=== PATIENT | female | born 2000 | race Caucasian/White ===

== ENCOUNTER 2021-05-10 21:42 | Emergency (ER) | payer BC ==
--- OUTSIDE RECORDS SUMMARY | 2021-05-10 21:45 | XMS REPORT | Continuity of Care Document ---
:2000 Author Organization [facility] t Address [address] [place] [address] [address] [place] [address] Care Team Providers Name Role Phone Lab, Fam Pob I Attending Clinician Unavailable Pob1, Care Clinic Attending Clinician Unavailable Problems This patient has no known problems. Allergies, Adverse Reactions, Alerts This patient has no known allergies or adverse reactions. Medications This patient has no known medications. Procedures This patient has no known procedures. Encounters Start End Encounter Admission Attending Care Care Encounter Source Date/Time Date/Time Type Type Clinicians Facility Department ID 2020-11-03 2020-11-03 Laboratory Lab, [facility] [id number] 11:21:58 11:39:18 Only Fam Pob I Health [id number] [place] [id number] Professio [phone] nal 0[address] One 2020-08-07 2020-08-07 Laboratory Lab, [facility] [place] [id number] 14:42:57 15:02:57 Only Fam Pob I Health [id number] [place] [id number] Professio [phone] nal 0[address] 2020-06-05 2020-06-05 Urgent Pob1, Acute [facility] [id number] 08:16:22 08:36:22 Care Care [facility] [id number] [place] [id number] Professio [phone] nal [phone] One Results This patient has no known results.
[2021-05-11] MEDS ORDERED: METRONIDAZOLE 500mg IVPB 500 MG/100 ML BAG IV ONE (01:55)
[2021-05-11] MEDS ORDERED: NA CHLORIDE 0.9% 1,000 ML ONE (01:55)
[2021-05-11] MEDS ORDERED: CIPROFLOXACIN 400mg IV 400 MG/200 ML BAG IV ONE (01:55)
[2021-05-11 01:57] LABS: Absolute Lymphocytes (CBC) 2.5 K/uL (0.7-4.9); Basophils % 0.7 % (0-1.3); Hematocrit 44.1 % (36.0-45.0); Lymphocytes % 33.3 % (15.3-44.8); MPV 7.9 fL (7.6-11.3); RBC Red Blood Cell Count 4.96 M/uL (3.86-4.86)
[2021-05-11 02:08] LABS: Albumin 4.2 g/dL (3.4-5.0); Bilirubin Direct 0.1 mg/dL (0-0.2); Bilirubin Total 0.3 mg/dL (0.2-1.0); Potassium 3.5 mmol/L (3.5-5.1); Protein, Total 8.3 g/dL (6.4-8.2)
[2021-05-11 02:45] LABS: Urine Blood 2+ (Negative); Urine Glucose Negative (Negative); Urine Protein 1+ (Negative); Urine Specific Gravity >=1.030 (1.005-1.030); Urine pH 5.5 (5.0-7.0)
[2021-05-11 03:11] LABS: Urine Specific Gravity/Preg >1.030 (1.005-1.030)
--- NOTE | 2021-05-11 04:06 | EDPHYS ---
Physician Documentation [facility] [place] Name: Erma Mei Age: 20 yrs Sex: Female : 2000 Arrival Date: 05/10/2021 Time: 21:45 Bed 15 Private MD: ED Physician Vasile Thomson HPI: 05/11 01:38 This 20 yrs old Female presents to ER via Ambulatory with complaints of ashley Diarrhea. 01:38 The patient presents to the emergency department with diarrhea, that is continuous. ashley Onset: The symptoms/episode began/occurred 2 day(s) ago. Possible causes: unknown. The symptoms are aggravated by nothing. The symptoms are alleviated by nothing. Associated signs and symptoms: The patient has no apparent associated signs or symptoms. Severity of symptoms: At their worst the symptoms were mild in the emergency department the symptoms are unchanged. The patient has not experienced similar symptoms in the past. 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 - Social history:: Smoking status: Patient denies any tobacco usage or history of. Patient uses street drugs, marijuana. ROS: 05/11 01:39 Constitutional: Negative for fever, chills, and weight loss, Eyes: Negative for injury, ashley pain, redness, and discharge, ENT: Negative for injury, pain, and discharge, Neck: Negative for injury, pain, and swelling, Cardiovascular: Negative for chest pain, palpitations, and edema, Respiratory: Negative for shortness of breath, cough, wheezing, and pleuritic chest pain, Back: Negative for injury and pain, : Negative for injury, bleeding, discharge, and swelling, MS/Extremity: Negative for injury and deformity, Skin: Negative for injury, rash, and discoloration, Neuro: Negative for headache, weakness, numbness, tingling, and seizure, Psych: Negative for depression, anxiety, suicide ideation, homicidal ideation, and hallucinations, Allergy/Immunology: Negative for hives, rash, and allergies, Endocrine: Negative for neck swelling, polydipsia, polyuria, polyphagia, and marked weight changes, Hematologic/Lymphatic: Negative for swollen nodes, abnormal bleeding, and unusual bruising. Abdomen/GI: Positive for abdominal pain, nausea, vomiting, diarrhea, abdominal cramps. Exam: 01:39 Constitutional: This is a well developed, well nourished patient who is awake, alert, ashley and in no acute distress. Head/Face: Normocephalic, atraumatic. Eyes: Pupils equal round and reactive to light, extra-ocular motions intact. Lids and lashes normal. Conjunctiva and sclera are non-icteric and not injected. Cornea within normal limits. Periorbital areas with no swelling, redness, or edema. ENT: Nares patent. No nasal discharge, no septal abnormalities noted. Tympanic membranes are normal and external auditory canals are clear. Oropharynx with no redness, swelling, or masses, exudates, or evidence of obstruction, uvula midline. Mucous membranes moist. Neck: Trachea midline, no thyromegaly or masses palpated, and no cervical lymphadenopathy. Supple, full range of motion without nuchal rigidity, or vertebral point tenderness. No Meningismus. Chest/axilla: Normal chest wall appearance and motion. Nontender with no deformity. No lesions are appreciated. Cardiovascular: Regular rate and rhythm with a normal S1 and S2. No gallops, murmurs, or rubs. Normal PMI, no JVD. No pulse deficits. Respiratory: Lungs have equal breath sounds bilaterally, clear to auscultation and percussion. No rales, rhonchi or wheezes noted. No increased work of breathing, no retractions or nasal flaring. Abdomen/GI: Soft, non-tender, with normal bowel sounds. No distension or tympany. No guarding or rebound. No evidence of tenderness throughout. Back: No spinal tenderness. No costovertebral tenderness. Full range of motion. Female : Normal external genitalia. Skin: Warm, dry with normal turgor. Normal color with no rashes, no lesions, and no evidence of cellulitis. MS/ Extremity: Pulses equal, no cyanosis. Neurovascular intact. Full, normal range of motion. Neuro: Awake and alert, GCS 15, oriented to person, place, time, and situation. Cranial nerves II-XII grossly intact. Motor strength 5/5 in all extremities. Sensory grossly intact. Cerebellar exam normal. Normal gait. Psych: Awake, alert, with orientation to person, place and time. Behavior, mood, and affect are within normal limits. Vital Signs: 05/10 22:44 BP 142 / 78; Pulse 87; Resp 16 S; Temp 98.8(O); Pulse Ox 97% on R/A; Weight 81.65 kg bb (R); Height 5 ft. 9 in. (175.26 cm) (R); Pain 4/10; 05/11 03:51 BP 126 / 75; Pulse 76; Resp 18; Pulse Ox 98% on R/A; ak2 05/10 22:44 Body Mass Index 26.58 (81.65 kg, 175.26 cm) MDM: 00:45 Patient medically screened. ashley 01:40 Differential diagnosis: Nonspecific abd pain, gastritis, cholecystitis, pancreatitis, ashley diverticulitis, viral gastroenteritis, gastroenteritis, appendicitis, cholecystitis, Cholelithiasis, diverticulitis, gastritis, gastroesophageal reflux disease, non-specific abd pain, pancreatitis, Peptic Ulcer Disease, urinary tract infection. Data reviewed: vital signs, nurses notes, lab test result(s), radiologic studies, CT scan. Data interpreted: lunchroom monitor: not applicable for this patient encounter. rate is 87 beats/min, rhythm is regular, Pulse oximetry: on room air is 97 %. Counseling: I had a detailed discussion with the patient and/or guardian regarding: the historical points, exam findings, and any diagnostic results supporting the discharge/admit diagnosis, lab results, radiology results, the need for outpatient follow up, for definitive care, a family practitioner, a chart picker. 05/10 22:50 Order name: Flu; Complete Time: 02:13 05/11 00:49 Order name: Basic Metabolic Panel [facility] 05/11 00:49 Order name: CBC with Diff; Complete Time: 02:13 [facility] 05/11 00:49 Order name: Hepatic Function; Complete Time: 02:13 ashley 05/11 00:49 Order name: Lipase; Complete Time: 02:13 [facility] 05/11 00:49 Order name: Basic Metabolic Panel; Complete Time: 02:13 [facility]AL 05/11 02:02 Order name: SARS-COV-2 RT PCR; Complete Time: 02:13 EDAL 05/11 02:45 Order name: Urine Dipstick-Ancillary; Complete Time: 03:46 EDAL 05/11 02:49 Order name: Urine Culture [facility] 05/10 22:50 Order name: Urine Dipstick-Ancillary (obtain specimen) 05/10 22:50 Order name: Urine Test (obtain specimen) 05/11 00:49 Order name: IV Saline Lock [facility] 05/11 00:49 Order name: Labs collected and sent [facility] 05/11 00:49 Order name: CT Abd/Pelvis - IV Contrast Only; Complete Time: 15:10 [facility] 05/11 02:50 Order name: Urine Culture [facility] 05/11 03:01 Order name: Urine --Ancillary (enter results); Complete Time: 03:46 tt3 05/11 03:57 Order name: Chest Single View XRAY; Complete Time: 15:10 [facility] Administered Medications: 01:33 Drug: NS 0.9% 1000 ml Route: IV; Rate: 1 bolus; Site: right antecubital; ak2 02:37 Drug: Cipro (ciprofloxacin) 400 mg Volume: 200 ml; Route: IVPB; Infused Over: 60 mins; ak2 Site: right antecubital; 02:37 Drug: Flagyl (metroNIDAZOLE) 500 mg Volume: 100 ml; Route: IVPB; Rate: 200 ml/hr; ak2 Infused Over: 30 mins; Site: right antecubital; 02:49 Drug: NS 0.9% 1000 ml Route: IV; Rate: 1 bolus; Site: left antecubital; ak2 Disposition Summary: 05/11/21 04:05 Discharge Ordered Location: Home [facility] Problem: new ashley Symptoms: have improved ashley Condition: Stable ashley Diagnosis - Diarrhea, unspecified ashley - Abdominal pain, Generalized ashley - UTI/ Urinary tract infection, site not specified ashley Followup: ashley - With: Private Physician - When: 2 - 3 days - Reason: Recheck today's complaints, Continuance of care, Re-evaluation by your physician Followup: ashley - With: - When: 2 - 3 days - Reason: Recheck today's complaints, Continuance of care, Re-evaluation by your physician Discharge Instructions: - Discharge Summary Sheet ashley - Abdominal Pain, Adult ashley - Food Choices to Help Relieve Diarrhea, Adult ashley - Diarrhea, Adult ashley - Urinary Tract Infection, Adult ashley - Urinary Tract Infection, Adult, [id number] ashley - Diarrhea, Adult, [id number] [facility] Forms: - Medication Reconciliation Form [facility] - Thank You Letter [facility] - Antibiotic Education [facility] - Prescription Opioid Use [facility] Prescriptions: - Flagyl 500 mg Oral Tablet - take 1 tablet by ORAL route every 8 hours for 7 days; 21 tablet; Refills: 0, [facility] Product Selection Permitted - Pepcid 20 mg Oral Tablet - take 1 tablet by ORAL route every 12 hours for 10 days; 20 tablet; Refills: 0, [facility] Product Selection Permitted - Cipro 500 mg Oral Tablet - take 1 tablet by ORAL route every 12 hours for 7 days; 14 tablet; Refills: 0, [facility] Product Selection Permitted - dicyclomine 20 mg Oral Tablet - take 1 tablet by ORAL route 4 times per day; 20 tablet; Refills: 0, Product [facility] Selection Permitted Signatures: Dispatcher [employer] EDMS Vasile Thomson MD MD cha Ballard, Brenda, RN RN Micah Titus PA PA [id number] Amilcar Talbert2 Corrections: (The following items were deleted from the chart) 00:47 05/10 22:51 CORONAVIRUS+[email or web address].BRZ ordered. EDAL EDMS
--- NOTE | 2021-05-11 04:06 | ER ---
Nurse's Notes [facility] Name: Erma Mei Age: 20 yrs Sex: Female : 2000 Arrival Date: 05/10/2021 Time: 21:45 Bed 15 Private MD: Diagnosis: Diarrhea, unspecified;Abdominal pain, Generalized;UTI/ Urinary tract infection, site not specified Presentation: 05/10 22:44 Chief complaint: Patient states: she has had cold-like symptoms runny nose, diarrhea bb for a week today she was having bloody diarrhea with mild abdominal pain. Coronavirus screen: cough unrelated to allergies. Ebola Screen: No symptoms or risks identified at this time. Initial Sepsis Screen: Does the patient meet any 2 criteria? No. Patient's initial sepsis screen is negative. Does the patient have a suspected source of infection? No. Patient's initial sepsis screen is negative. Risk Assessment: Do you want to hurt yourself or someone else? Patient reports no desire to harm self or others. Onset of symptoms was May 03, 2021. 22:44 Method Of Arrival: Ambulatory bb 22:44 Acuity: CHRIS 3 bb Triage Assessment: 22:46 General: Appears in no apparent distress. Behavior is calm, cooperative. Pain: bb Complains of pain in abdomen Pain currently is 4 out of 10 on a pain scale. Neuro: Level of Consciousness is awake, alert, obeys commands, Oriented to person, place, time, situation. Cardiovascular: No deficits noted. Respiratory: Respiratory effort is even, unlabored. GI: Abdomen is non-distended, Reports diarrhea, bloody stool. Derm: Skin is pink, warm \T\ dry. Musculoskeletal: Circulation, motion, and sensation intact. 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 - Social history:: Smoking status: Patient denies any tobacco usage or history of. Patient uses street drugs, marijuana. Screenin/03 02:50 Abuse screen: Denies threats or abuse. Denies injuries from another. Nutritional ak2 screening: No deficits noted. Tuberculosis screening: No symptoms or risk factors identified. Fall Risk None identified. Assessment: 02:49 Reassessment: Patient and/or family updated on plan of care and expected duration. Pain ak2 level reassessed. General: urine test POC negative. Pain: Denies pain. Neuro: No deficits noted. Cardiovascular: No deficits noted. Respiratory: No deficits noted. Vital Signs: 05/10 22:44 BP 142 / 78; Pulse 87; Resp 16 S; Temp 98.8(O); Pulse Ox 97% on R/A; Weight 81.65 kg bb (R); Height 5 ft. 9 in. (175.26 cm) (R); Pain 4/10; 05/11 03:51 BP 126 / 75; Pulse 76; Resp 18; Pulse Ox 98% on R/A; ak2 05/10 22:44 Body Mass Index 26.58 (81.65 kg, 175.26 cm) bb ED Course: 05/10 21:45 Patient arrived in ED. am2 22:46 Triage completed. bb 22:46 Arm band placed on Patient placed in waiting room, Patient notified of wait time. Labs bb ordered per protocol. 05/11 00:45 Vasile Thomson MD is Attending Physician. ashley 02:50 Patient has correct armband on for positive identification. ak2 02:50 No provider procedures requiring assistance completed. Inserted saline lock: 20 gauge ak2 in right antecubital area, using aseptic technique. 03:12 CT Abd/Pelvis - IV Contrast Only In Process Unspecified. EDMS 04:05 Leeann Hawthorne MD is Referral Physician. ashley 04:19 Chest Single View XRAY In Process Unspecified. EDMS Administered Medications: 01:33 Drug: NS 0.9% 1000 ml Route: IV; Rate: 1 bolus; Site: right antecubital; ak2 02:37 Drug: Cipro (ciprofloxacin) 400 mg Volume: 200 ml; Route: IVPB; Infused Over: 60 mins; ak2 Site: right antecubital; 02:37 Drug: Flagyl (metroNIDAZOLE) 500 mg Volume: 100 ml; Route: IVPB; Rate: 200 ml/hr; ak2 Infused Over: 30 mins; Site: right antecubital; 02:49 Drug: NS 0.9% 1000 ml Route: IV; Rate: 1 bolus; Site: left antecubital; ak2 Outcome: 04:05 Discharge ordered by MD. ramirez 04:36 Discharged to home ambulatory. ak2 04:36 Condition: good 04:36 Discharge instructions given to patient. 04:36 Patient left the ED. ak2 Signatures: Dispatcher [employer] Vasile Rodriguez MD MD cha Ballard, Brenda, RN RN Imelda Garcai Anthony ak2
[2021-05-11 04:53] VITALS: TEMP 98.8
[2021-05-11 04:55] VITALS: BP 126/75; O2SAT 98
--- NOTE | 2021-05-11 07:25 | RAD REPORT ---
EXAM DESCRIPTION: RAD - Chest Single View - 05/11/2021 4:19 am CLINICAL HISTORY: COUGH COMPARISON: No comparisons FINDINGS: No evidence of edema or pneumonia. The heart size is within normal limits.No acute osseous abnormality. No significant pleural effusions or pneumothorax. IMPRESSION: No acute cardiopulmonary disease.
--- NOTE | 2021-05-11 13:29 | RAD REPORT ---
EXAM DESCRIPTION: CT - Abdomen Pelvis W Contrast - 05/11/2021 6:26 am CLINICAL HISTORY: 20 years, Female, ABD PAIN COMPARISON: None. TECHNIQUE: Contrast-enhanced images of the abdomen and pelvis were performed utilizing 2 mm slice th ickness at 2 mm interval reconstruction from the lung bases to the ischial tuberosities after the adm inistration of IV contrast. Delayed imaging through the kidneys and bladder were also generated. In addition multiplanar reformats in the coronal and sagittal plane were obtained and reviewed. This exam was performed according to our departmental dose-optimization protocol, which includes auto mated exposure control, adjustment of the mA and/or kV according to patient size and/or use of iterat josé luis reconstruction technique. FINDINGS: The lung bases demonstrate to be clear. The liver, gallbladder, pancreas, spleen and adrenal glands demonstrate to be unremarkable, no focal lesions are noted. The kidneys demonstrate normal uptake of contrast media with no evidence for hydronephrosis. Grossly the unopacified stomach, small bowel and large bowel demonstrate to be within normal limits. There is no evidence for bowel dilatation/or free air. The appendix is normal. The urinary bladder demonstrate to be unremarkable. The uterus demonstrate to be within normal limi ts. There is a T-shaped radiodensity structure within the endometrial cavity corresponding to a intra uterine device. There are no adnexal masses. The aorta demonstrate to be normal. There is no retr operitoneal lymphadenopathy. There is no evidence for ascites and/or significant abnormal fluid colle ctions. The rest of the soft tissue and bony structures are within normal limits. IMPRESSION: No acute intra-abdominal or pelvic pathology identified. Intrauterine device in place. Electronically signed by: Braden Mays MD 05/11/2021 3:51 AM CDT Due to temporary technical issues with the PACS/Fluency reporting system, reports are being signed by the in house radiologist without review as a courtesy to ensure prompt reporting. The interpreting r adiologist is fully responsible for the content of the report.
== END 2021-05-11 04:36 | disposition home or self-care (01) ==
LOC: ER 21:42
DX: N39.0 Urinary tract infection, site not specified (principal); R10.84 Generalized abdominal pain; Z88.2 Allergy status to sulfonamides
CPT/HCPCS: 87088; 85025; 87086; 80048; 36415; 81025; 80076; 81003; 83690; 87804 ×2; 74177; 71045; U0003; Q9967; J7030; J0744

== ENCOUNTER 2024-10-20 15:34 | Emergency (ER) | payer BC ==
[2024-10-20 17:31] LABS: Specific Gravity 1.028 (1.005-1.030)
[2024-10-20 17:34] LABS: Absolute Basophils 0.1 K/uL (0-0.5); Absolute Eosinophils 0.1 K/uL (0-0.5); Absolute Lymphocytes (CBC) 1.6 K/uL (0.7-4.9); Absolute Monocytes 0.6 K/uL (0.1-1.3); Absolute Neutrophil 8.2 K/uL (1.8-8.0); Basophils % 0.6 % (0-1.3); Eosinophils % 0.6 % (0-4.4); Hemoglobin 13.1 g/dL (12.0-15.0); Lymphocytes % 15.2 % (15.3-44.8); MCH 29.3 pg (27.0-35.0); MCHC 32.7 g/dL (32.0-36.0); MCV 89.6 fL (80-100); MPV 7.7 fL (7.6-11.3); Monocytes % 6.1 % (3.3-12.3); Neutrophils % 77.5 % (41.7-73.7); Nucleated Red Blood Cells % 0.1 % (0-0); Platelets 456 thou/uL (152-406); RBC Red Blood Cell Count 4.46 M/uL (3.86-4.86); Red Cell Distribution Width 14.4 % (12.1-15.2)
[2024-10-20] MEDS ORDERED: KETOROLAC 30 MG/ML INJ ONE (17:46)
[2024-10-20 17:53] LABS: Specific Gravity 1.028 (1.005-1.030); Sqamous Epithelial <5 /HPF (None Seen); Urine Bacteria <20 /HPF (<20); Urine Bilirubin NEGATIVE (Negative); Urine Blood 1+ (Negative); Urine Clarity Extremely Turbid (Clear); Urine Color Light-Yellow (Yellow); Urine Culture Reflex Order REFLEXED; Urine Glucose NEGATIVE (Negative); Urine Ketones NEGATIVE (Negative); Urine Microscopic Reflex YN ORDER UMIC; Urine Nitrite NEGATIVE (Negative); Urine Protein TRACE (Negative); Urine RBC 21-50 /HPF (None Seen); Urine Urobilinogen Normal (Normal); Urine WBC 20-50 /HPF (<5); Urine pH 7.5 (5.0-7.0)
[2024-10-20 17:58] LABS: ALT/SGPT 19 U/L (13-56); AST/SGOT 16 U/L (15-37); Albumin 3.3 g/dL (3.4-5.0); Albumin/Globulin Ratio 0.7 (1.1-1.8); Alkaline Phosphatase 57 U/L (45-117); Anion Gap 9.5 mEq/L (5.0-15.0); BUN Blood Urea Nitrogen 11 mg/dL (7-18); Bicarbonate 26 mEq/L (21-32); Bilirubin Total 0.3 mg/dL (0.2-1.0); Globulin 4.8 g/dL (2.3-3.5); Glomerular Filtration Rate 108 ml/min (=/>90); Glucose Level 102 mg/dL (74-106); Lipase 21 U/L (13-75); Magnesium 2.3 mg/dL (1.6-2.4); NT PRO-BNP 166 pg/mL (<125); Potassium 3.5 mEq/L (3.5-5.1); Protein, Total 8.1 g/dL (6.4-8.2); Sodium Level 138 mEq/L (136-145); Troponin High Sensitivity 10.5 pg/mL (<58.9)
[2024-10-20 18:04] LABS: Bilirubin Direct < 0.2 mg/dL (0-0.2); Bilirubin Indirect, Calculated 0.1 mg/dL (0.2-0.8)
--- NOTE | 2024-10-20 18:17 | RAD REPORT ---
EXAMINATION: ONE VIEW CHEST XR CLINICAL INDICATION: Female, 24 years old.,SOB TECHNIQUE: Frontal chest projection is submitted. Examination is limited by patient positioning and t echnique. COMPARISON: 05/11/2021 FINDINGS: The lungs are well inflated and clear. No pneumothorax or sizable effusion. The heart is normal in s ize. Mediastinal contours are unremarkable. IMPRESSION: No acute intrathoracic abnormalities.
[2024-10-20] MEDS ORDERED: metroNIDAZOLE 500 MG TABLET ONE (18:27)
[2024-10-20] MEDS ORDERED: DICYCLOMINE HCL 10 MG CAP ONE (18:27)
[2024-10-20] MEDS ORDERED: CIPROFLOXACIN HCL 500 MG TAB ONE (18:27)
--- NOTE | 2024-10-20 18:45 | RAD REPORT ---
EXAMINATION: US Extrem Venous W Compress Boris CLINICAL INDICATION: [facility] MAIN r/o dvt Bed Name: 17 Y TECHNIQUE: Complete bilateral duplex sonography of the BILATERAL lower extremity veins was performed. The examination included compression for vein patency, color Doppler imaging and flow augmentation in response to distal compression of the distal external iliac, common femoral, femoral, popliteal, t ibial, and great and small saphenous veins. COMPARISON: No prior exam. FINDINGS: Duplex sonography testing of the veins of the BILATERAL lower extremity was performed. Color flow yris ging shows all veins to be compressible with [id number] color filling. Pulsatile and phasic flow is present within all lower extremity deep and superficial veins examined. IMPRESSION: There is no deep vein or superficial vein thrombosis.
--- NOTE | 2024-10-20 20:13 | RAD REPORT ---
EXAM: CT Chest For Pe Angio TECHNIQUE: CT angiogram of the chest was performed following intravenous contrast administration, inc luding sagittal and coronal as well as maximum intensity projection reformats. One or more of the following dose reduction techniques were used: Automated exposure control, adjustment of the mA and k V according to patient size, and iterative reconstruction. Unless otherwise specified, incidental findings do not require dedicated imaging follow-up. INDICATION: HS MAIN right lower chest/flank pain COMPARISON: 10/20/2024. FINDINGS: LINES/TUBES: None. PULMONARY ARTERIES: Main pulmonary arteries are normal in caliber. No filling defects within the pul monary arteries to suggest pulmonary embolus. LUNGS AND AIRWAYS: The lungs and central airways are normal without focal abnormality. PLEURA: No effusion or pneumothorax. HEART AND MEDIASTINUM: The visualized thyroid gland is normal. No mediastinal, hilar, or axillary lym phadenopathy. Heart is unremarkable. No pericardial effusion. SOFT TISSUES AND BONES: No acute osseous abnormality. No significant soft tissue finding. UPPER ABDOMEN: Unremarkable. IMPRESSION: No evidence of acute central pulmonary emboli. No suspicious intrathoracic findings..
--- NOTE | 2024-10-20 20:25 | ER ---
Nurse's Notes [facility] Name: Erma Mei Age: 24 yrs Sex: Female : 2000 Arrival Date: 10/20/2024 Time: 15:34 Bed 16 Private MD: Diagnosis: Pleurisy Presentation: 10/20 15:49 Chief complaint: Patient states: PT REPORTS RIGHT SHOULDER PAIN STARTED LAST NIGHT WAS db "INDESCRIBABLE" STATES HX OF SPONTANEOUS PNEUMOTHORAX AND FEELS LIKE SIMILAR PAIN. STATES PAIN HAS GONE DOWN NOW. REPORTS "LEEP" PROCEDURE ON Sep. Coronavirus screen: Client denies travel out of the [place] in the last 14 days. At this time, the client does not indicate any symptoms associated with coronavirus-19. Ebola Screen: Patient negative for fever greater than or equal to 101.5 degrees Fahrenheit, and additional compatible Ebola Virus Disease symptoms Patient denies exposure to infectious person. Patient denies travel to an Ebola-affected area in the 21 days before illness onset. No symptoms or risks identified at this time. Initial Sepsis Screen: Does the patient meet any 2 criteria? No. Patient's initial sepsis screen is negative. Does the patient have a suspected source of infection? No. Patient's initial sepsis screen is negative. Risk Assessment: Do you want to hurt yourself or someone else? Patient reports no desire to harm self or others. Onset of symptoms was October 19, 2024. 15:49 Method Of Arrival: Ambulatory db 15:49 Acuity: CHRIS 3 db Triage Assessment: 15:51 General: Appears in no apparent distress. comfortable, Behavior is calm, cooperative, db appropriate for age. Pain: Complains of pain in anterior aspect of right shoulder and posterior aspect of right shoulder. Neuro: Level of Consciousness is awake, alert, obeys commands, Oriented to person, place, time, situation. Respiratory: Airway is patent Respiratory effort is even, unlabored, Respiratory pattern is regular, symmetrical. 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 - Infectious Disease History:: Denies. - Social history:: Smoking status: Reported history of juuling and/or vaping. Screenin:50 [facility] ED Fall Risk Assessment (Adult) History of falling in the last 3 months, rs5 including since admission No falls in past 3 months (0 pts) Confusion or Disorientation No (0 pts) Intoxicated or Sedated No (0 pts) Impaired Gait No (0 pts) Mobility Assist Device Used No (0 pt) Altered Elimination No (0 pt) Score/Fall Risk Level 0 - 2 = Low Risk Oriented to surroundings, Maintained a safe environment. Abuse screen: Denies threats or abuse. Nutritional screening: No deficits noted. Tuberculosis screening: No symptoms or risk factors identified. Assessment: 15:50 General: Appears in no apparent distress. uncomfortable, Behavior is calm, cooperative. rs5 Pain: Complains of pain in right shoulder Pain. 15:50 Neuro: Level of Consciousness is awake, alert, obeys commands, Oriented to person, rs5 place, time, situation. Cardiovascular: Patient's skin is warm and dry. Respiratory: Airway is patent Respiratory effort is even, unlabored, Respiratory pattern is regular, symmetrical. GI: Abdomen is round non-distended, Abd is soft and non tender X 4 quads. : No signs and/or symptoms were reported regarding the genitourinary system. EENT: No signs and/or symptoms were reported regarding the EENT system. Derm: Skin is intact, Skin is pink, warm \\T\\ dry. Musculoskeletal: Range of motion: intact in all extremities. 17:01 Reassessment: Patient and/or family updated on plan of care and expected duration. Pain rs5 level reassessed. Patient is alert, oriented x 3, equal unlabored respirations, skin warm/dry/pink. 18:17 Reassessment: Patient and/or family updated on plan of care and expected duration. Pain rs5 level reassessed. Patient is alert, oriented x 3, equal unlabored respirations, skin warm/dry/pink. Vital Signs: 15:49 BP 128 / 83; Pulse 111; Resp 16; Temp 98.1; Pulse Ox 95% ; Weight 79.38 kg; Height 5 db ft. 9 in. ; Pain 3/10; 17:01 BP 128 / 62; Pulse 71; Resp 17; Pulse Ox 99% on R/A; rs5 18:52 BP 118 / 73; Pulse 66; Resp 17; Pulse Ox 99% ; rs5 19:15 BP 121 / 78; Pulse 85; Resp 17; Pulse Ox 98% ; Pain 0/10; rg5 20:11 BP 109 / 88; Pulse 85; Resp 18; Temp 98; Pulse Ox 99% on R/A; Pain 0/10; rg5 15:49 Body Mass Index 25.84 (79.38 kg, 175.26 cm) db 15:49 Pain Scale: Adult db 19:15 Pain Scale: Adult rg5 20:11 Pain Scale: Adult rg5 ED Course: 15:36 Patient arrived in ED. mr 15:47 Vasile Hilton PA is PHCP. cp 15:47 Faustino Dubose MD is Attending Physician. cp 15:50 Patient has correct armband on for positive identification. Bed in low position. Call rs5 light in reach. Side rails up X2. 15:50 Inserted saline lock: 20 gauge in left antecubital area, using aseptic technique. Blood rs5 collected. Flushed with 10 mL NS. 15:50 No provider procedures requiring assistance completed. rs5 15:51 Triage completed. db 15:51 Arm band placed on left wrist. db 17:04 Rudy Villa, RN is Primary Nurse. rs5 17:27 XRAY Chest (1 view) In Process Unspecified. EDMS 18:29 US Extremity Venous W Compression Boris In Process Unspecified. EDMS 19:40 CT Chest For PE Angio In Process Unspecified. EDMS 20:44 Provided Education on: post er care done. rg5 20:44 IV discontinued, bleeding controlled, No redness/swelling at site. Pressure dressing rg5 applied. Administered Medications: 18:30 Drug: Ketorolac IVP 15 mg IVP once Route: IVP; Site: left antecubital; rs5 19:27 Follow up: Response: No adverse reaction; Pain is decreased rg5 Medication: 18:17 VIS not applicable for this client. rs5 Outcome: 20:24 Discharge ordered by . kb 20:44 Discharged to home ambulatory, rg5 20:44 Condition: stable 20:44 Discharge instructions given to patient, Instructed on discharge instructions, Demonstrated understanding of instructions, follow-up care, medications, Prescriptions given X 1, 20:45 Patient left the ED. rg5 Signatures: Dispatcher [employer] EDMS Lesly Wright, CHARLEEN-C CHILI PEPPER GRINDER-Ckb May Scott, Reg Reg mr Vasile Hilton PA PA cp Benton, Danielle, RN RN db Rudy Villa RN RN rs5 David Abdi RN RN rg5 Corrections: (The following items were deleted from the chart) 15:52 15:51 PSHx: LEEP (hand and wrist); db db 18:17 15:50 General: Appears in no apparent distress. uncomfortable, Behavior is calm, rs5 cooperative, rs5 19:28 19:15 BP 121 / 78; Pulse 85bpm; Resp 17bpm; Pulse Ox 98%; Pain 0/10, Adult; rg5 rg5
--- NOTE | 2024-10-20 20:25 | EDPHYS ---
Physician Documentation [facility] Name: Erma Mei Age: 24 yrs Sex: Female : 2000 Arrival Date: 10/20/2024 Time: 15:34 Bed 16 Private MD: ED Physician Faustino Dubose HPI: 10/20 16:20 This 24 yrs old Unknown Female presents to ER via Ambulatory with complaints of Flank cp Pain, Shoulder Pain. 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 - Infectious Disease History:: Denies. - Social history:: Smoking status: Reported history of juuling and/or vaping. ROS: 16:25 Constitutional: Negative for body aches, chills, fever, poor PO intake, cp 16:25 Eyes: Negative for injury, pain, redness, and discharge, cp 16:25 ENT: Negative for drainage from ear(s), ear pain, sore throat, difficulty swallowing, difficulty handling secretions, 16:25 Respiratory: Negative for cough, wheezing, 16:25 Abdomen/GI: Negative for abdominal pain, vomiting, diarrhea, constipation, 16:25 Back: Positive for pain at rest, pain with movement, of the right subscapular area and right flank area, Exam: 16:30 Head/Face: Normocephalic, atraumatic. cp 16:30 Constitutional: The patient appears in no acute distress, alert, awake, non-diaphoretic, non-toxic, well developed, well nourished, 16:30 Eyes: Periorbital structures: appear normal, Conjunctiva: normal, Sclera: no appreciated abnormality, Lids and lashes: appear normal, bilaterally, 16:30 ENT: External ear(s): are unremarkable, Nose: is normal, Mouth: Lips: moist, Oral mucosa: moist, Posterior pharynx: Airway: no evidence of obstruction, patent, 16:30 Chest/axilla: Palpation: crepitus, is not appreciated, tenderness, that is mild, of the right lower lateral posterior chest wall, 16:30 Cardiovascular: Rate: tachycardic, Rhythm: regular, 16:30 Respiratory: the patient does not display signs of respiratory distress, Respirations: normal, no use of accessory muscles, no retractions, labored breathing, is not present, Breath sounds: decreased breath sounds, that are mild, are heard in the right posterior lower lobe, stridor, is not appreciated, 16:30 Abdomen/GI: Inspection: abdomen appears normal, Palpation: abdomen is soft and non-tender, in all quadrants, 16:30 Neuro: Orientation: to person, place \T\ time. Mentation: is normal, 17:30 ECG was reviewed by the Attending Physician. cp Vital Signs: 15:49 BP 128 / 83; Pulse 111; Resp 16; Temp 98.1; Pulse Ox 95% ; Weight 79.38 kg; Height 5 db ft. 9 in. ; Pain 3/10; 17:01 BP 128 / 62; Pulse 71; Resp 17; Pulse Ox 99% on R/A; rs5 18:52 BP 118 / 73; Pulse 66; Resp 17; Pulse Ox 99% ; rs5 19:15 BP 121 / 78; Pulse 85; Resp 17; Pulse Ox 98% ; Pain 0/10; rg5 20:11 BP 109 / 88; Pulse 85; Resp 18; Temp 98; Pulse Ox 99% on R/A; Pain 0/10; rg5 15:49 Body Mass Index 25.84 (79.38 kg, 175.26 cm) db 15:49 Pain Scale: Adult db 19:15 Pain Scale: Adult rg5 20:11 Pain Scale: Adult rg5 MDM: 20:24 Medical Screening Exam initiated kb 10/20 16:15 Order name: Basic Metabolic Panel; Complete Time: 18:22 cp 10/20 16:15 Order name: CBC with Diff; Complete Time: 18:22 cp 10/20 18:22 Interpretation: Normal except: PLT 456; THAI% 77.5; LYM% 15.2; NEUT A 8.2. cp 10/20 16:15 Order name: D-Dimer; Complete Time: 17:45 cp 10/20 17:45 Interpretation: Reviewed. 10/20 16:15 Order name: LFT's; Complete Time: 18:22 cp 10/20 16:15 Order name: Magnesium; Complete Time: 18:22 cp 10/20 16:15 Order name: NT PRO-BNP; Complete Time: 18:22 cp 10/20 16:15 Order name: Troponin HS; Complete Time: 18:22 cp 10/20 16:15 Order name: Lipase; Complete Time: 18:22 cp 10/20 16:15 Order name: Urinalysis w/ reflexes; Complete Time: 18:22 cp 10/20 16:15 Order name: Test, Urine; Complete Time: 17:45 cp 10/20 17:58 Order name: Urine Culture EDMS 10/20 16:15 Order name: XRAY Chest (1 view); Complete Time: 18:22 cp 10/20 18:22 Interpretation: Report review. cp 10/20 17:46 Order name: CT Chest For PE Angio; Complete Time: 20:13 cp 10/20 17:46 Order name: US Extremity Venous W Compression Boris; Complete Time: 18:53 cp 10/20 18:53 Interpretation: Report reviewed. cp 10/20 16:15 Order name: EKG; Complete Time: 16:15 cp 10/20 16:15 Order name: Cardiac monitoring; Complete Time: 17:35 cp 10/20 16:15 Order name: EKG - Nurse/Tech; Complete Time: 17:35 cp 10/20 16:15 Order name: IV Saline Lock; Complete Time: 17:35 cp 10/20 16:15 Order name: Labs collected and sent; Complete Time: 17:35 cp 10/20 16:15 Order name: O2 Per Protocol; Complete Time: 17:35 cp 10/20 16:15 Order name: O2 Sat Monitoring; Complete Time: 17:35 cp EC:30 Rate is 90 beats/min. Rhythm is regular. ME interval is normal. QRS interval is normal. cp QT interval is normal. T waves are Inverted in lead aVR. Interpreted by me. Reviewed by me. Administered Medications: 18:30 Drug: Ketorolac IVP 15 mg IVP once Route: IVP; Site: left antecubital; rs5 19:27 Follow up: Response: No adverse reaction; Pain is decreased rg5 Disposition: 10/21 09:09 Co-signature as Attending Physician, Faustino Dubose MD I reviewed the patient's care rn provided by the Advanced Practice Provider and agree with the diagnosis and treatment plan. Disposition Summary: 10/20/24 20:24 Discharge Ordered Notes: Location: Home kb Condition: Stable kb Diagnosis - Pleurisy kb Followup: kb - With: Emergency Department - When: As needed - Reason: Worsening of condition Followup: kb - With: Private Physician - When: 2 - 3 days - Reason: Recheck today's complaints, Continuance of care, Re-evaluation by your physician Discharge Instructions: - Discharge Summary Sheet kb - Pleurisy, [id number] kb Forms: - Medication Reconciliation Form kb - Antibiotic Education kb - Prescription Opioid Use kb - Patient Portal Instructions kb - Leadership Thank You Letter kb Prescriptions: - Diclofenac Sodium 75 mg Oral tablet, delayed release (enteric coated) - take 1 tablet ORAL route 2 times per day As needed; 30 tablet; Refills: 0, kb Product Selection Permitted Signatures: Dispatcher [employer] EDMS Lesly Wright, LICHA VILLASEÑOR-Faustino Noble MD MD rn Page, Corey, PA PA cp Benton, Danielle RN RN Rudy Estrada RN RN rs5 David Abdi RN rg5 Corrections: (The following items were deleted from the chart) 10/20 15:52 15:51 PSHx: LEEP (hand and wrist); db db 16:15 16:15 BASIC METABOLIC PANEL+C.LAB.BRZ ordered. EDMS EDMS 16:15 16:15 CBC+H.LAB.BRZ ordered. EDMS EDMS 16:15 16:15 D-DIMER+COAG.LAB.BRZ ordered. EDMS EDMS 16:15 16:15 HEPATIC FUNCTION+C.LAB.BRZ ordered. EDMS EDMS 16:15 16:15 MAGNESIUM+C.LAB.BRZ ordered. EDMS EDMS 16:15 16:15 PROBNP+C.LAB.BRZ ordered. EDMS EDMS 16:15 16:15 Troponin High Sensitivity+C.LAB.BRZ ordered. EDMS EDMS 16:15 16:15 LIPASE+C.LAB.BRZ ordered. EDMS EDMS 16:15 16:15 Urinalysis+U.LAB.BRZ ordered. EDMS EDMS 16:15 16:15 Test, Urine+UC.LAB.BRZ ordered. EDMS EDMS 16:15 16:15 Chest Single View+RAD.RAD.BRZ ordered. EDMS EDMS 17:47 17:47 Chest For PE Angio+CT.RAD.BRZ ordered. EDMS EDMS 17:47 17:47 Extrem Venous W Compression Boris+US.RAD.BRZ ordered. EDIN EDMS :10/19 16:30 Constitutional: The patient appears in no acute distress, alert, awake, cp non-diaphoretic, non-toxic, well developed, well nourished, cp 10/20 16:30 Head/Face: Normocephalic, atraumatic. cp cp 10/20 18:10/19 16:30 Eyes: Periorbital structures: appear normal, Conjunctiva: normal, Sclera: cp no appreciated abnormality, Lids and lashes: appear normal, bilaterally, cp 10/20 18:10/19 16:30 ENT: External ear(s): are unremarkable, Nose: is normal, Mouth: Lips: cp moist, Oral mucosa: moist, Posterior pharynx: Airway: no evidence of obstruction, patent, cp 10/20 18:10/19 16:30 Chest/axilla: Palpation: crepitus, is not appreciated, tenderness, that is cp mild, of the right lower lateral posterior chest wall, cp 10/20 18:10/19 16:30 Cardiovascular: Rate: tachycardic, Rhythm: regular, cp cp 10/20 18:10/19 16:30 Respiratory: the patient does not display signs of respiratory distress, cp Respirations: normal, no use of accessory muscles, no retractions, labored breathing, is not present, Breath sounds: decreased breath sounds, that are mild, are heard in the right posterior lower lobe, stridor, is not appreciated, cp /09 26:10/19 16:30 Abdomen/GI: Inspection: abdomen appears normal, Palpation: abdomen is soft cp and non-tender, in all quadrants, cp 10/20 18:10/19 16:30 Neuro: Orientation: to person, place \T\ time. Mentation: is normal, cp cp
[2024-10-22 16:16] VITALS: BP 109/88; TEMP 98; O2SAT 99
--- NOTE | 2024-10-24 12:09 | EKG ---
Test Date: 2024-10-20 Test Time: 17:22:58 Director Human Services: [place] MEASUREMENT RESULTS: Intervals: Rate: 90 NV: 140 QRSD: 76 QT: 346 QTc: 423 [place]: P: 66 NV: 140 QRS: 61 T: 52 INTERPRETIVE STATEMENTS: Normal sinus rhythm Possible Left atrial enlargement Borderline ECG Compared to ECG 07/10/2007 15:54:20 No significant changes Electronically Signed On 10-24-24 12:07:43 RN GYNECOLOGY by Harish Ta
== END 2024-10-20 20:45 | disposition home or self-care (01) ==
LOC: ER 15:34
DX: R09.1 Pleurisy (principal); Z87.891 Personal history of nicotine dependence; Z88.2 Allergy status to sulfonamides
CPT/HCPCS: 36415; 71045; 71275; 80048; 80076; 81001; 81025; 83690; 83735; 83880; 84484; 85025; 85379; 87086; 87088; 93005; 93970; 96374; 99284